=== PATIENT | male | born 1955 | race Caucasian/White ===

== ENCOUNTER 2025-05-10 09:06 | Emergency (ER) | payer MEDICARE, SELFPAY ==
[2025-05-10] VITALS (10 sets, daily range): BP systolic 118–144; BP diastolic 57–75; PULSE 80–105; RESP 15–19; TEMP 36.5–37.1; O2SAT 94–98
--- NOTE | ~2025-05-10 | CT_ITS ---
EXAMINATION: CT soft tissue neck w con DATE: 05/10/2025 11:08 INDICATION: Left peritonsillar abscess TECHNIQUE: Computed tomography (CT) of the neck was performed with 75 mL Omnipaque-350 intravenous co ntrast. Automated exposure control and iterative reconstruction technique were employed. The dose-gerald gth product was 559.89 mGy-cm. COMPARISON: None FINDINGS: Orbits are normal. The paranasal sinuses are clear. Mastoid air cells and middle ear cavities are geetha ar. Submandibular and parotid glands are normal and symmetric. Thyroid gland is unremarkable. There a re scattered normal-sized lymph nodes in the neck, no lymphadenopathy. Prominent asymmetric enlargeme nt of the left palatine tonsil, the caudal most portion of which is partially obscured by streak jerel fact from dental restorations. No evident organized peripheral enhancing peritonsillar abscess. There is soft tissue swelling extending caudally along the left aryepiglottic fold partially effacing the left piriform sinus. Epiglottis and right aryepiglottic folds are normal. Given the degree of soft ti ssue swelling there is relative paucity of stranding in the surrounding fat which in addition to tons illitis raises the possibility of malignancy is in etiology for the asymmetric soft tissue swelling. The vasculature is patent and normal in caliber. Superior mediastinum is unremarkable. Mild left and minimal right apical pleural-parenchymal scarring. Severe cervical spondylosis. IMPRESSION: 1. Prominent asymmetric soft tissue swelling at the left palatine tonsil without evident abscess but with additional asymmetric soft tissue swelling extending caudally at the left side of the pharynx an d left epiglottic fold. This could be inflammatory in etiology related to tonsillitis however the deg ree of swelling is disproportionate to the minimal stranding in the surrounding fat which along with the extent of the enlarged soft tissues raises concern for malignancy. Consider ENT consultation. Reviewed, dictated and finalized at location A. IMPRESSION: 1. Prominent asymmetric soft tissue swelling at the left palatine tonsil withou t evident abscess but with additional asymmetric soft tissue swelling extending caudally at the left side of the pharynx and left epiglottic fold. This could be inflammatory in etiology related to tonsillitis however the degree of swelli ng is disproportionate to the minimal stranding in the surrounding fat which al gilberto with the extent of the enlarged soft tissues raises concern for malignancy. Consider ENT consultation.
--- OUTSIDE RECORDS SUMMARY | 2025-05-10 09:12 | XMS_ITS | Clinical Summary ---
Author Organization [facility] Address [address] [place] [address] Care Team Providers Care Senior Wind Turbine Technician Name Role Phone Yesenia Newton MD Primary Care Provider Allergies Active Allergy Reactions Criticality Noted Date Comments Clindamycin Rash Medium 04/20/2016 Penicillins Rash,Itching,Swelling Medium 04/20/2016 Medications naproxen (NAPROSYN) 500 MG tablet Take 1 tablet (500 mg total) by mouth daily. Active lisinopril (PRINIVIL) 20 MG tablet Take 1 tablet (20 mg total) by mouth daily. Active atorvastatin (LIPITOR) 20 MG tabletIndicatio ns:Dyslipidemia Take 1 tablet (20 mg total) by mouth nightly at bedtime. 90 tablet 3 07/03/2024 Active Active Problems Problem Noted Date Diagnosed Date Dyslipidemia (high LDL; low HDL) 04/13/2024 Overview (07/03/2024): Last Assessment & Plan: Chronic, stable ASCVD score 17.9% We reviewed the risks of high cholesterol, and encouraged a statin. Patient has declined Hypertension, essential 04/13/2024 Overview (07/03/2024): Last Assessment & Plan: Chronic, stable Continue lisinopril Aortic ectasia 05/13/2023 Overview (07/03/2024): Abdominal Repeat abdominal aortic ultrasound in 2032 Last Assessment & Plan: Chronic, stable Continue blood pressure control Recheck in 10 years Lumbar radiculopathy 04/20/2016 Overview (07/03/2024): Last Assessment & Plan: Chronic, stable Continue naproxen as needed Continue supportive care Family History Medical History Relation Comments No Known Problems Father No Known Problems Maternal Grandfather Stroke Maternal Grandmother No Known Problems Mother No Known Problems Paternal Grandfather No Known Problems Paternal Grandmother Relation Status Comments Father Maternal Grandfather Maternal Grandmother Mother Paternal Grandfather Paternal Grandmother Social History Tobacco Use Types Packs/Day Years Used Date Smoking Tobacco: Never Smokeless Tobacco: Never Alcohol Use Standard Drinks/Week Comments Never 0 (1 standard drink = 0.6 oz pur e alcohol) Sex and Gender Information Value Date Recorded Sex Assigned at Not on file Legal Sex Male 11:29 AM CDT Gender Identity Not on file Sexual Orientation Not on file Last Filed Vital Signs Vital Sign Reading Time Taken Comments Blood Pressure 134/72 07/03/2024 1:06 PM CDT Pulse 81 07/03/2024 1:06 PM CDT Temperature 36 C (96.8 F) 07/20/2023 4:40 PM CDT Respiratory Rate 20 07/20/2023 4:55 PM CDT Oxygen Saturation 93% 07/03/2024 1:06 PM CDT Inhaled Oxygen Concentration - - Weight 93.4 kg (206 lb) 07/03/2024 1:06 PM CDT Height 182.9 cm (6') 07/03/2024 1:06 PM CDT Body Mass Index 27.94 07/03/2024 1:06 PM CDT Plan of Treatment Upcoming Encounters Date Type Department Care Team (Late st Contact Info) Description 07/02/2025 1:30 PM CDT Office Visit [facility] [address] [place] [address] Michael Bain MD [facility], [address] [place] [address] Health Maintenance Due Date Last Done Comments Hepatitis C 1975 DTaP, Tdap and Td Vaccines ( 1 - Tdap) 1976 Zoster Vaccines (1 of 2) 2007 Pneumococcal Vaccine: 50+ Years (2 of 2 - PPSV23) 09/09/2018 09/09/2017 Annual Medicare Wellness Visit 2022 COVID-19 Vaccine (3 - 2023-2 5 season) 2024 06/23/2023, 06/25/2022 RSV Immunization or 60+ Years (1 - 1-dose 75+ series) 2032 Colorectal Cancer Screening Colonoscopy (10 Years) 07/20/2033 07/20/2023 Meningococcal B Vaccine Aged Out No l onger eligible based on patient's age to complete this topic Meningococcal Vaccine Aged Out No mary noris eligible based on patient's age to complete this topic RSV Immunizations Under 20 Months Aged Out No longer eligible b ased on patient's age to complete this topic Insurance [employer] Care Teams Senior Wind Turbine Technician Relationship Specialty Start Date End Date Yesenia Newton MD [address] [facility] [address] [place] [address] PCP - General FAMILY PRACTICE 07/06/23
--- OUTSIDE RECORDS SUMMARY | 2025-05-10 09:12 | XMS_ITS | Clinical Summary ---
Author Organization [address] Address [address] [place] [id number] Care Team Providers Care Straightedge Machine Operator Helper Name Role Phone Yesenia Newton MD Primary Care Provi ayse Allergies Active Allergy Reactions Criticality Noted Date Comments Clindamycin Rash Medium 04/20/2016 Rash and swelling Penicillins Itching,Rash,Swelling Medium 04/20/2016 Medications atorvastatin (LIPITOR) 20 mg tablet Take 1 tablet (20 mg total) by mouth daily 07/03/2024 Active lisinopriL (PRINIVIL,ZESTRI L) 20 mg tablet Take 1 tablet (20 mg total) by mouth daily 90 tablet 3 10/10/2024 Active naproxen (NAPROSYN) 500 mg tablet Take 1 tablet (500 mg total) by mouth 2 (two) times a day as needed for pain for pain 180 tablet 3 10/10/2024 Active Active Problems Problem Noted Date Diagnosed Date Hypertension, essential 04/13/2024 Assessment & Plan (04/13/2024 1:06 PM CDT): Chronic, stable Continue lisinopril Dyslipidemia (high LDL; low HDL) 04/13/2024 Assessment & Plan (04/13/2024 1:38 PM CDT): Chronic, stable ASCVD score 17.9% We reviewed the risks of high cholesterol, and encouraged a statin. Patient has declined Aortic ectasia 05/13/2023 Overview (05/13/2023): Abdominal Repeat abdominal aortic ultrasound in 2032 Assessment & Plan (04/13/2024 1:04 PM CDT): Chronic, stable Continue blood pressure control Recheck in 10 years Encounter for annual wellness exam in Medicare p atient 04/21/2023 Overview (04/13/2024): Discussed healthy diet and disease prevention- reviewed working on healthy diet, Pt believes he has a living will Health Maintenance: Last PSA:10/2022-declined Last colonoscopy:07/26- normal Last AAA Screenin/23 Last Tdap: encouraged Last pneumonia: encouraged Last Shingrix: encouraged Last Flu: encouraged Last COVID:encouraged Assessment & Plan (04/13/2024 1:04 PM CDT): Discussed healthy diet and disease prevention- reviewed working on healthy diet, Pt believes he has a living will Health Maintenance: Last PSA:10/2022-declined Last colonoscopy:07/26- normal Last AAA Screenin/23 Last Tdap: encouraged Last pneumonia: encouraged Last Shingrix: encouraged Last Flu: encouraged Last COVID:encouraged Assessment & Plan (04/21/2023 1:14 PM CDT): Discussed healthy diet and disease prevention- reviewed working on healthy diet, working on daily activity to your level, wearing sun screen, seat belts. Reviewed no drinking or driving, no texting/driving Discussed importance of scheduling recommended screening tests. Discussed importance of regular physical examinations for health maintenance Encouraged looking into a power of banking attorney or living will Health Maintenance: Last PSA:10/2022 Last colonoscopy/cologuard:agreeable to cologaurd Last AAA Screening: ordered Last Tdap: encouraged Last pneumonia: encouraged Last Shingrix: encouraged Last Flu: encouraged Last COVID:encouraged Test results: if you have not received communication about test results within 7 days of the test being performed, please contact the office. I strongly encourage myChart sign ups. It can facilitate communication flow. Please contact the office for instructions on signing up. Lumbar radiculopathy 04/20/2016 Assessment & Plan (04/13/2024 1:06 PM CDT): Chronic, stable Continue naproxen as needed Continue supportive care Resolved Problems Problem Noted Date Diagnosed Date Resolved Date Chest pain 06/17/2022 04/21/2023 Encounters Date Type Department Care Team Description 05/10/2025 8:30 AM CDT Office Visit [facility] at [address] [id number] Pratima Rich NP Tonsillar abscess (Primary Dx); Throat pain in adult from Last 3 Months Immunizations Immunization Administration Dates Next Due COVID-19 MRNA (MODERNA) .5 M L (50 MCG) VACCINE (12 YEARS AND UP) 06/23/2023 Influenza, Quadrivalent, Shelly l Culture-based MDCK, Preservative Free, Antibiotic Free, Intramuscular 06/25/2022 Influenza, Quadrivalent, Hig h Dose, Preservative Free, Intrr 06/23/2023 Influenza, Quadrivalent, Split, Intramuscular Influenza, Quadrivalent, Spl it, Preservative Free, Intramuscular 06/28/2017 Influenza, Trivalent, Preservative Free, Intramu scular 11/11/2016 Influenza, Unspecified 07/04/2021,07/04/2020 Pneumococcal Conjugate PCV 13 09/09/2017 Surgical History Surgery Date Site/Laterality Comments EPIDURAL INJECTION LUMBOSACRAL 04/29/2016 N/A SPINE SURGERY 1994 + 1995 Medical History Medical History Date Comments Chest tightness Hypertension Family History Medical History Relation Name Comments Cancer Father Michael Arthritis Mother Malena Cancer Mother Malena Arthritis Sister Leonardo Relation Name Status Comments Father Michael Mother Malena Sister Leonardo Social History Tobacco Use Types Packs/Day Years Used Date Smoking Tobacco: Never Smokeless Tobacco: Never AUDIT-C Answer Date Recorded Q1: How often do you have a drink containing alcohol? Never 04/13/2024 Q2: How many drinks containi ng alcohol do you have on a typical day when you are drinking? Patient does not drink Q3: How often do you have si x or more drinks on one occasion? 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 Gender Identity Not on file Sexual Orientation Not on file Obstetrics History Last Filed Vital Signs Vital Sign Reading Time Taken Comments Blood Pressure 128/72 05/10/2025 8:29 AM CDT Pulse 102 05/10/2025 8:29 AM CDT Temperature 36.9 C (98.4 F) 05/10/2025 8:29 AM CDT Respiratory Rate 20 05/10/2025 8:29 AM CDT Oxygen Saturation 97% 05/10/2025 8:29 AM CDT Inhaled Oxygen Concentration - - Weight 84.8 kg (187 lb) 05/10/2025 8:29 AM CDT Height 182.9 cm (6') 07/20/2024 9:43 AM CDT Body Mass Index 25.36 07/20/2024 9:43 AM CDT Plan of Treatment Health Maintenance Due Date Last Done Comments DTaP/Tdap/Td Vaccine (1 - Tdap) 1968 Hepatitis B Screening 1975 Zoster Vaccine (1 of 2) 2007 Pneumococcal vaccine 65+ (2 of 2 - PPSV23) 09/09/2018 09/09/2017 Covid-19 Vaccine (3 - 2023-2 5 season) 2024 06/23/2023, 06/25/2022 Prostate Cancer Screening-PSA 10/29/2024 10/29/2022 Depression Screening 04/13/2025 04/13/2024, 04/13/2024, 04/21/2023, Additional history exists Fall Risk Assessment 04/13/2025 04/13/2024, 04/21/20 23 Well Visit 65+ 04/13/2025 04/13/2024, 04/03, 04/21/2023 Influenza Vaccine (#1) 2025 , 06/23/2023, 06/25/2022, Additional history exists Colon Cancer Screening-Colonoscopy 07/21/20333, 07/20/2023 Hepatitis C Screening Completed 05/27/2023 Procedures Procedure Name Priority Date/Time Associated Diagnosis Comments POCT RAPID STREP Routine 05/10/2025 8:41 AM CDT Tonsillar abscess COLONOSCOPY Routine 07/20/2023 HEPATITIS C ANTIBODY Routine 05/27/2023 10:08 AM CDT Need for hepatitis C screening test PSA SCREEN Routine 10/29/2022 9:56 AM TERMINAL PRESS OPERATOR Prostate cancer screening from Last 3 Months or Most Recently Relevant to Health Maintenance Results * POCT rapid strep A (05/10/2025 8:41 AM CDT) Rapid Strep A, POC Negative Negative Swab 05/10/2025 8:41 AM CDT Pratima Rich NP POINT OF CARE TEST ORDERABLES Final Result * COLONOSCOPY (07/20/2023) Scribed Colonoscopy Normal Historical Provider MD HEALTH MAINTENANCE Final Result * Hepatitis C antibody (05/27/2023 10:08 AM CDT) Hep C Ab NON-REACTI VE NON-REACT ARTIS [facility] Comment: HCV antibody was non-reactive. There is no laboratory evidence of HCV infection. In most cases, no further action is required. However, if recent HCV exposure is suspected, a test for HCV RNA (test code 06058) is suggested. For additional information please refer to http://education.Edaixi/faq/MHE43u3 (This link is being provided for informational/ educational purposes only.) Blood 05/27/2023 10:0 8 AM CDT 05/27/2023 10:09 AM CDT Narrative [facility] - 05/28/2023 10:30 AM CDT FASTING:YES FASTING: YES us Yesenia Newton MD LAB MICROBIOLOGY - GENERAL ORDERABLES Final Result [facility] [employer] [facility] [id number] [id number] * PSA screen (10/29/2022 9:56 AM TERMINAL PRESS OPERATOR) PSA 1.39 < OR = 4.00 ng/mL [facility] Comment: The total PSA value from this assay system is standardized against the WHO standard. The test result will be approximately 20% lower when compared to the equimolar-standardized total PSA (Maddy Harlingen). Comparison of serial PSA results should be interpreted with this fact in mind. This test was performed using the Siemens chemiluminescent method. Values obtained from different assay methods cannot be used interchangeably. PSA levels, regardless of value, should not be interpreted as absolute evidence of the presence or absence of disease. Blood 10/29/2022 9:56 AM TERMINAL PRESS OPERATOR 10/29/2022 9:58 AM TERMINAL PRESS OPERATOR Narrative [facility] - 10/31/2022 1:12 AM TERMINAL PRESS OPERATOR VARIIED ALL INFO FASTING:YES AN UPDATE OR CORRECTION HAS BEEN MADE TO NAME FASTING: YES us Yesenia Newton MD LAB BLOOD ORDERABLE S Final Result Performing Organization Address [facility] Co de Phone Number ROBERTA [facility] [address] [id number] from Last 3 Months or Most Recently Relevant to Health Maintenance Insurance [facility] MEDICARE ADVANTAGE MEDICARE Care Teams Straightedge Machine Operator Helper Relationship Specialty Start Date End Date Yesenia Newton MD [address] [place] [address] PCP - General Family Medicine 03/06/22
--- OUTSIDE RECORDS SUMMARY | 2025-05-10 09:12 | XMS_ITS | Encounter Summary ---
Author Organization [facility] Address [address] [place] [address] Care Team Providers Care Newsperson Name Role Phone Yesenia Newton MD Primary Care Provi ayse Reason for Visit * Reason Comments Sore Throat Sore throat and ear pain x 3 days. 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 Gender Identity Not on file Sexual Orientation Not on file documented as of this encounter Last Filed Vital Signs Vital Sign Reading Time Taken Comments Blood Pressure 128/72 05/10/2025 8:29 AM CDT Pulse 102 05/10/2025 8:29 AM CDT Temperature 36.9 C (98.4 F) 05/10/2025 8:29 AM CDT Respiratory Rate 20 05/10/2025 8:29 AM CDT Oxygen Saturation 97% 05/10/2025 8:29 AM CDT Inhaled Oxygen Concentration - - Weight 84.8 kg (187 lb) 05/10/2025 8:29 AM CDT Height - - Body Mass Index 25.36 07/20/2024 9:43 AM CDT documented in this encounter Patient Instructions * Patient Instructions* Pratima Rich NP - 05/10/2025 8:30 AM CDT --Sending patient to the ER for further testing and exam for potential left tonsillar abscess. Patient verbalized understanding and will drive himself to [facility] documented in this encounter Progress Notes * Pratima Rich NP - 05/10/2025 8:30 AM CDT Images from the original note were not included. Subjective/Objective Patient ID: Tariq Dennison is a 69 y.o. male. This patient has verbally consented to recording this visit in order to utilize AI technology in generating this note. Chief Complaint Sore Throat (Sore throat and ear pain x 3 days. Had neg covid test at home yesterday ) History of Present Illness Tariq Dennison is a 69 year old male who presents with a sore throat for three days. He has been experiencing a sore throat for the past three days. He tested negative for COVID-19 at home, and a strep test conducted today was also negative. Despite these results, he continues to experience significant discomfort in his throat. He has been using [id number] Tylenol and Vicks products to manage his symptoms, but these have not been effective in alleviating the pain. He denies recent exposure to anyone with strep throat and confirms that he still has his tonsils. No dizziness or lightheadedness. Review of Systems All other systems reviewed and are negative. Physical Exam HEENT: Significant asymmetry in the throat with the left side more than double the size of the right side. Marked swelling in the left tonsillar region, displacing towards the uvula and covering the posterior aspect of the throat. Physical Exam Vitals reviewed. Constitutional: General: He is not in acute distress. Appearance: Normal appearance. He is not ill-appearing. HENT: Head: Normocephalic. Right Ear: Tympanic membrane, ear canal and external ear normal. No middle ear effusion. Tympanic membrane is not erythematous or bulging. Left Ear: Tympanic membrane, ear canal and external ear normal. No middle ear effusion. Tympanic membrane is not erythematous or bulging. Nose: No congestion or rhinorrhea. Mouth/Throat: Lips: [place]. Mouth: Mucous membranes are moist. Pharynx: Uvula midline. Posterior oropharyngeal erythema present. No pharyngeal swelling or oropharyngeal exudate. Tonsils: Tonsillar abscess (left side) present. 1+ on the right. 4+ on the left. Cardiovascular: Rate and Rhythm: Normal rate and regular rhythm. Pulmonary: Effort: Pulmonary effort is normal. No respiratory distress. Breath sounds: Normal breath sounds. No decreased breath sounds or wheezing. Lymphadenopathy: Cervical: Cervical adenopathy present. Right cervical: Superficial cervical adenopathy present. Left cervical: Superficial cervical adenopathy present. Skin: General: Skin is warm. Neurological: Mental Status: He is oriented to person, place, and time. Psychiatric: Behavior: Behavior is cooperative. Vitals: 05/10/25 0829 BP: 128/72 Pulse: 102 Resp: 20 Temp: 36.9 ??C (98.4 ??F) SpO2: 97% Weight: 84.8 kg (187 lb) Past Medical History: Diagnosis Date Chest tightness Hypertension Current Outpatient Medications: atorvastatin (LIPITOR) 20 mg tablet, Take 1 tablet (20 mg total) by mouth daily, Disp: , Rfl: lisinopriL (PRINIVIL,ZESTRIL) 20 mg tablet, Take 1 tablet (20 mg total) by mouth daily, Disp: 90 tablet, Rfl: 3 naproxen (NAPROSYN) 500 mg tablet, Take 1 tablet (500 mg total) by mouth 2 (two) times a day as needed for pain for pain, Disp: 180 tablet, Rfl: 3 Allergies Allergen Reactions Cleocin [Clindamycin] Rash Rash and swelling Penicillins Itching, Rash and Swelling Social History Tobacco Use Smoking status: Never Smokeless tobacco: Never Substance and Sexual Activity Drug use: Never Sexual activity: Yes Partners: Female Alcohol Use: Not At Risk (04/13/2024) AUDIT-C Frequency of Alcohol Consumption: Never Average Number of Drinks: Patient does not drink Frequency of Binge Drinking: Never Past Surgical History: Procedure Laterality Date EPIDURAL INJECTION LUMBOSACRAL N/A 04/29/2016 SPINE SURGERY 1994 + 1995 Procedures Assessment/Plan 1. Tonsillar abscess (Primary) - POCT rapid strep A 2. Throat pain in adult Results LABS Strep test: Negative (05/10/2023) Recent Results (from the past 4 hours) POCT rapid strep A Collection Time: 05/10/25 8:41 AM Result Value Ref Range Rapid Strep A, POC Negative Negative Assessment & Plan Left tonsillar abscess Suspected left tonsillar abscess with significant swelling, negative strep test. Risk of airway obstruction necessitates immediate ER evaluation. CT scan needed to assess abscess size and potential drainage. - Refer to ER for evaluation and management. - Advise ER to perform CT scan to assess abscess size and need for drainage. - Provide printed note for ER indicating suspicion of tonsillar abscess. Sore throat Sore throat likely related to suspected left tonsillar abscess, negative COVID- 19 and strep tests. Education --GO TO ER Disposition Treatment plan including expectations, follow up, and return precautions discussed with patient/parent, verbalizes understanding. Medication dosage, use, and potential adverse reactions discussed with patient/parent. Advised to follow up with PCP if symptoms do not resolve as expected or sooner if condition worsens. Signs/symptoms warranting ER evaluation reviewed. Patient and/or guardian was given an opportunity to ask questions, questions answered. Pratima iRch NP This office note has been partially dictated using Symform software, and as a result portions of the record may have been created with this software. Occasional wrong-word or '[id number]' substitutions may have occurred due to the inherent limitations of voice recognition software. Read the chartcarefully and recognize, using context, where substitutions have occurred. Cosigned by Dejan Ferguson MD at 05/10/2025 8:53 AM CDT documented in this encounter Plan of Treatment Not on file documented as of this encounter Procedures Procedure Name Priority Date/Time Associated Diagnosis Comments POCT RAPID STREP Routine 05/10/2025 8:41 AM CDT Tonsillar abscess documented in this encounter Results * POCT rapid strep A (05/10/2025 8:41 AM CDT) Rapid Strep A, POC Negative Negative Swab 05/10/2025 8:41 AM CDT Pratima Rich MIGRATORY GAME BIRD BIOLOGIST POINT OF CARE TEST ORDERABLES Final Result documented in this encounter Visit Diagnoses Diagnosis Tonsillar abscess- Primary Throat pain in adult documented in this encounter Care Teams Newsperson Relationship Specialty Start Date End Date Yesenia Newton MD [address] [place] [address] PCP - General Family Medicine 03/06/22 documented as of this encounter
--- NOTE | 2025-05-10 09:59 | ED_ITS ---
HPI - Skin/Abscess/Foreign Bdy General Chief complaint: Skin/Abscess/Foreign Body Stated complaint: tonsillar abscess sent by pcp Time Seen by Provider: 05/10/25 09:42 History of Present Illness HPI narrative: 69-year-old male with reported history of hypertension presents to the emergency department with concerns for a peritonsillar abscess. Patient states 3 days ago he began developing a sore throat that is worse with swallowing. 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 He denies difficulty breathing or swallowing, fevers, vomiting. Related Data Allergies Allergy/AdvReac Type Severity Reaction Status Date / Time clindamycin Allergy Unknown Anaphylaxis Verified 05/10/25 10:33 Penicillins Allergy Unknown Anaphylaxis Verified 05/10/25 10:33 Review of Systems 2 Review of Systems: All systems reviewed & are unremarkable except as noted in HPI and below PMFSH Family History Family History Grandparent Family history of lung cancer Father Family history of lymphoma Patient's father is Mother Patient's mother is Social History Social History Smoking status: Never smoker Alcohol intake: never Exam 2 Narrative: GENERAL: Well-appearing, well-nourished, and in no acute distress. HEAD: Normocephalic, atraumatic. EYES: PERRLA and EOMI. ENT: Nares clear, no rhinorrhea or epistaxis. Mucous membranes moist. Left peritonsillar edema with edema to the soft palate and uvular deviation. Abscess is actively draining purulence. Patient is tolerating secretions and speaking in full sentences with intact airway. No trismus. No drooling NECK: Supple. CHEST: Clear to auscultation. No respiratory distress. HEART: Regular rate and rhythm. No murmur heard. Normal peripheral pulses. EXTREMITIES: Normal range of motion. No edema. SKIN: Warm, dry, no rash. NEURO: No focal deficits. Alert and oriented x3 Course Vital Signs Vital signs: Vital Signs Temperature 98.7 F 05/10/25 09:19 Pulse Rate 102 H 05/10/25 09:19 Respiratory Rate 18 05/10/25 09:19 Blood Pressure 133/68 05/10/25 09:19 Pulse Oximetry 98 05/10/25 09:19 Oxygen Delivery Room Air 05/10/25 09:19 Temperature 98.7 F 05/10/25 09:19 Pulse Rate 105 H 05/10/25 09:43 Respiratory Rate 18 05/10/25 09:43 Blood Pressure 144/75 H 05/10/25 09:43 Pulse Oximetry 97 05/10/25 09:43 Oxygen Delivery Room Air 05/10/25 09:19 MDM - Skin/Abscess/Foreign Bdy MDM Narrative Medical decision making narrative: 69-year-old male with a reported history of hypertension presents to emergency department for possible left-sided ASSISTANT SPEECH LANGUAGE PATHOLOGIST from urgent care. See HPI for further history. Triage vitals with tachycardia 102. Patient is afebrile and nontoxic appearing. He is resting comfortably in exam bed and speaking in full sentences. No drooling or trismus. Patient is tolerating secretions. Exam is notable for. Tonsillar edema and soft palate edema on the left with uvular deviation. The abscess is actively draining purulence. I was able to express additional purulence with gentle pressure using a tongue depressor and suction. Patient reports immediate improvement in pressure. Lab work shows leukocytosis of 11.7. ESR elevated at 22 and CRP is 6.8. Chemistries are largely unremarkable. Viral swabs and strep were negative. Lactic is within normal limits. CT soft tissue neck with contrast shows IMPRESSION: 1. Prominent asymmetric soft tissue swelling at the left palatine tonsil without evident abscess but with additional asymmetric soft tissue swelling extending caudally at the left side of the pharynx and left epiglottic fold. This could be inflammatory in etiology related to tonsillitis however the degree of swelling is disproportionate to the minimal stranding in the surrounding fat which along with the extent of the enlarged soft tissues raises concern for malignancy. Consider ENT consultation. Note that the CT was obtained after I was able to drain 3-5 cc of purulence from the abscess. Patient updated on results. He has an anaphylactic reaction to both clindamycin and penicillins and was started on linezolid and Flagyl in the ED. He was given IV fluids, Toradol and 10 mg of Decadron. He reports significant improvement and is tolerating p.o. intake, pain is controlled. I discussed findings with [facility] who offers transfer if clinically indicated but feels the patient is tolerating secretions and airway is intact he can follow-up outpatient in 10-14 days. He agrees to continue linezolid and Flagyl outpatient and is start a Medrol Dosepak. States the ENT clinic will contact the patient within the next 24 hours to schedule appointment. Patient is well-appearing clinically with no drooling, no trismus, no airway compromise. He feels safe with discharge home. Patient was also given the ENT clinics phone number to call if he does not hear from them tomorrow afternoon. He was advised to bring his CT imaging on a disc to his appointment. I discussed strict ED return precautions. Patient and his at bedside are agreeable to plan and verbalized understanding. Discharged in stable condition. Lab Data 05/10/25 10:01 05/10/25 10:01 Labs: Lab Results 05/10/25 05/10/25 Range/Units 10:01 10:10 WBC 11.7 H (4.5-10.0) K/mm3 RBC 4.81 (4.6-6.20) M/mm3 Hgb 14.9 (14.0-18.0) g/dL Hct 44.1 (42.0-52.0) % MCV 91.7 (80-100) fl MCH 31.0 (26-34) pg MCHC 33.8 (32-36) g/dl RDW 12.7 (11.5-14.5) % Plt Count 284 (150-375) k/mm3 MPV 9.5 (7.4-10.4) fl Immature Gran % (Auto) 0.3 (0-0.5) % Neut % (Auto) 84.1 H (45.5-73.1) % Lymph % (Auto) 9.3 L (18.3-44.2) % [place] % (Auto) 5.5 (2.6-8.5) % Eos % (Auto) 0.3 (0-4.4) % Baso % (Auto) 0.5 (0.2-1.2) % Lymph # (Auto) 1.09 (0.9-3.2) K/mm3 [place] # (Auto) 0.6 (0.1-0.6) K/mm3 Eos # (Auto) 0.0 (0-0.3) K/mm3 Baso # (Auto) 0.1 (0.0-0.1) K/mm3 Abs Immat Gran (auto) 0.04 H (0.00-0.031) K/mm3 Absolute Neuts (auto) 9.8 H (1.3-6.7) K/mm3 Absolute Nucleated RBC 0.000 (0.0-0.012) K/mm3 Nucleated RBC % 0.0 (0.0-0.2) % ESR 22 H (0-20) mm/hr Sodium 137 (137-145) mmol/L Potassium 4.7 (3.4-5.0) mmol/L Chloride 102 (98-107) mmol/L Carbon Dioxide 25 (22-30) mmol/L Anion Gap 10 (4-12) mmol/L BUN 15 (9-20) mg/dL Creatinine 1.09 (0.7-1.3) mg/dL Estim Creat Clear Calc 64 ml/min Estimated GFR > 60 (59 - ) Glucose 100 (65-110) mg/dL Lactic Acid 0.8 (0.7-2.0) mmol/L Calcium 9.5 (8.4-10.2) mg/dL Total Bilirubin 1.1 (0.2-1.3) mg/dL AST 29 (17-59) U/L ALT 22 (6-50) U/L Alkaline Phosphatase 70 (38-126) U/L C-Reactive Protein 6.8 H (<1.0) mg/dL Total Protein 8.3 H (6.3-8.2) g/dL Albumin 4.5 (3.5-5.1) g/dL Influenza A (RT-PCR) Negative (Negative) Influenza B (RT-PCR) Negative (Negative) RSV (RT-PCR) Negative (Negative) SARS-CoV-2 RNA (RT-PCR) Negative (Negative) Group A Strep (PCR) Not detected (Negative) Discharge Plan Discharge Clinical Impression: Peritonsillar abscess Patient Disposition: Home Condition: Stable Instructions: Antibiotic Form, Peritonsillar Abscess (DC) Additional Instructions: You were evaluated in the emergency department for sore throat. Your found to have a peritonsillar abscess clinically and we were able to drain a good amount of pus from it. The CT scan shows no focal area of pus or abscess which may be due to the drainage prior to the scan. They do note there is a large amount of swelling. This may be due to an infection or possible malignancy as discussed. Please take the antibiotics and steroids as directed and follow-up closely with the [facility] ENT clinic. You should hear from them within the next 24 hours but if you do not hear from them on 05/11/2025 in the afternoon, call them at [phone]. Please return to the emergency department if you develop difficulty breathing, difficulty swallowing, you are unable to tolerate your medications, fever of 100.4 or greater, or other concerning symptoms. Patient Language: Spanish Prescriptions: New linezolid 600 mg tablet 600 mg PO Q12H 14 Days Qty: 28 0RF metronidazole 500 mg tablet 500 mg PO Q8H 14 Days Qty: 42 0RF linezolid 600 mg tablet 600 mg PO Q12H 14 Days Qty: 28 0RF metronidazole 500 mg tablet 500 mg PO Q8H 14 Days Qty: 42 0RF methylprednisolone [Medrol (Tavon)] 4 mg tablets,dose pack See Rx Instructions PO .COMPLEX Qty: 21 0RF Rx Instructions: orally per package directions Follow-up/Referrals: Otis Del Valle MD [Physician] -
[2025-05-10 10:09] LABS: Hematocrit 44.1 % (42.0-52.0); Hemoglobin 14.9 g/dL (14.0-18.0); Immature Granulocyte Percent A 0.3 % (0-0.5); Lymphocytes Absolute Auto 1.09 K/mm3 (0.9-3.2); Mean Corpuscular HGB Conc 33.8 g/dl (32-36); Mean Corpuscular Hemoglobin 31.0 pg (26-34); Mean Corpuscular Volume 91.7 fl (80-100); Nucleated Red Blood Cells Absolute Auto 0.000 K/mm3 (0.0-0.012); Nucleated Red Blood Cells Perc 0.0 % (0.0-0.2); Platelet Count Result 284 k/mm3 (150-375); Red Blood Count 4.81 M/mm3 (4.6-6.20); White Blood Count 11.7 K/mm3 (4.5-10.0)
[2025-05-10 10:27] LABS: Alanine Aminotransferase 22 U/L (6-50); Albumin Level 4.5 g/dL (3.5-5.1); Alkaline Phosphatase 70 U/L (38-126); Anion Gap 10 mmol/L (4-12); Aspartate Amino Transferase 29 U/L (17-59); Bilirubin,Total 1.1 mg/dL (0.2-1.3); Blood Urea Nitrogen 15 mg/dL (9-20); CRP 6.8 mg/dL (<1.0); Calcium 9.5 mg/dL (8.4-10.2); Carbon Dioxide 25 mmol/L (22-30); Chloride 102 mmol/L (98-107); Estimated CRCL calculation 64 ml/min; Estimated Glomerular Filt Rate > 60; Glucose 100 mg/dL (65-110); Potassium 4.7 mmol/L (3.4-5.0); Sodium 137 mmol/L (137-145); Total Protein 8.3 g/dL (6.3-8.2)
[2025-05-10 10:34] LABS: Strep Group A RT-PCR NOT DETECTED (Negative)
[2025-05-10] MEDS: SODIUM CHLORIDE 0.9% IV 1,000 ML 999 ML IV CONT (10:34)
[2025-05-10] MEDS: dexAMETHasone SOD PHOS INJ 10 MG/ML 1 ML VIAL IV PUSH (10:35)
[2025-05-10] MEDS: metroNIDAZOLE 500 MG/ISO 100ML 500 MG/100 ML BAG 100 MG IVPB (10:36)
[2025-05-10] MEDS: KETOROLAC 15 MG/ML VIAL (*BKC) IV PUSH (10:37)
[2025-05-10 10:46] LABS: Influenza A QL RT-PCR Negative (Negative); Influenza B QL RT-PCR Negative (Negative); RSV RNA, RT-PCR Negative (Negative); SARS-CoV-2 RNA PCR Negative (Negative)
--- OUTSIDE RECORDS SUMMARY | 2025-05-10 11:46 | XMS_ITS | Clinical Summary ---
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 For additional information please refer to http://education.[employer]/faq/WRN23a7 (This link is being provided for informational/ educational purposes only.) Blood 05/27/2023 10:0 8 AM CDT 05/27/2023 10:09 AM CDT Narrative [facility] - 05/28/2023 10:30 AM CDT FASTING:YES FASTING: YES us Yesenia Newton MD LAB MICROBIOLOGY - GENERAL ORDERABLES Final Result [facility] [id number] [id number] * PSA screen (10/29/2022 9:56 AM PEST CONTROLLER) PSA 1.39 < OR = 4.00 ng/mL [facility] Comment: The total PSA value from this assay system is standardized against the WHO standard. The test result will be approximately 20% lower when compared to the equimolar-standardized total PSA (Maddy [place]). Comparison of serial PSA results should be interpreted with this fact in mind. This test was performed using the Siemens chemiluminescent method. Values obtained from different assay methods cannot be used interchangeably. PSA levels, regardless of value, should not be interpreted as absolute evidence of the presence or absence of disease. Blood 10/29/2022 9:56 AM PEST CONTROLLER 10/29/2022 9:58 AM PEST CONTROLLER Narrative [facility] - 10/31/2022 1:12 AM PEST CONTROLLER VARIIED ALL INFO FASTING:YES AN UPDATE OR CORRECTION HAS BEEN MADE TO NAME FASTING: YES us Yesenia Newton MD LAB BLOOD ORDERABLE S Final Result Performing Organization Address [facility] Co de Phone Number ROBERTA [facility] [id number] [phone] from Last 3 Months or Most Recently Relevant to Health Maintenance Insurance [facility] MEDICARE ADVANTAGE MEDICARE Care Teams Pearl Stringer Relationship Specialty Start Date End Date Yesenia Newton MD [address] [place] [address] PCP - General Family Medicine 03/06/22
--- OUTSIDE RECORDS SUMMARY | 2025-05-10 11:46 | XMS_ITS | Clinical Summary ---
Author Organization [facility] Address [address] [place] [address] Care Team Providers Care Pc Tech Name Role Phone Yesenia Newton MD Primary [...] PM CDT Office Visit [facility] [address] [place] [address] Michael Bain MD [facility], [address] [place] [address] Health Maintenance Due Date Last Done Comments [...] complete this topic Insurance [employer] Care Teams Pc Tech Relationship Specialty Start Date End Date Yesenia Newton MD [address] [facility] [address] [place] [address] PCP - General FAMILY PRACTICE 07/06/23
--- OUTSIDE RECORDS SUMMARY | 2025-05-10 11:46 | XMS_ITS | Encounter Summary ---
Author Organization [facility] Address [address] [place] [address] Care Team Providers Care Crop Roller Name Role Phone Yesenia Newton MD Primary Care Provi ayse Reason for Visit * Reason Comments Sore Throat Sore throat and ear pain x 3 days. 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 He has been using [id number] Tylenol and Vicks products to manage his [...] Nose: No congestion or rhinorrhea. Mouth/Throat: Lips: [place]. Mouth: Mucous membranes are moist. Pharynx: Uvula [...] opportunity to ask questions, questions answered. Pratima Rich NP This office note has been partially dictated using [employer] software, and as a result portions of the record may have been created with this software. Occasional wrong-word or '[id number]' substitutions may have occurred due to the [...] Swab 05/10/2025 8:41 AM CDT Pratima Rich CLINICAL SAFETY SPECIALIST POINT OF CARE TEST ORDERABLES Final Result documented in this encounter Visit Diagnoses Diagnosis Tonsillar abscess- Primary Throat pain in adult documented in this encounter Care Teams Crop Roller Relationship Specialty Start Date End Date Yesenia Newton MD [address] [place] [address] PCP - General Family Medicine 03/06/22 documented as of this encounter
[2025-05-10] MEDS: LINEZOLID 600 MG/300 ML 600 MG/300 ML SOLN 300 MG IVPB (11:57)
== END 2025-05-10 13:53 | disposition home or self-care (01) ==
PROVIDERS: Emergency Provider Physician Assistant; PCP Family Medicine
DX: J36 Peritonsillar abscess (principal); Z20.822 Contact with and (suspected) exposure to COVID-19; I10 Essential (primary) hypertension; Z79.899 Other long term (current) drug therapy
CPT/HCPCS: 36415; 70491; 80053; 83605; 85025; 85652; 86140; 87040; 87637; 87651; 96365; 96368; 96375; 99284; J1100; J1836; J1885; J2020; J7030; Q9967